=== PATIENT | female | born 1930 | race Caucasian/White ===

== ENCOUNTER 2016-06-19 16:20 | Emergency (ER) | payer MEDICARE ==
[~2016-06-19] VITALS: Ht 161.3 cm; Wt 81.8 kg
[~2016-06-19 16:20] MED LIST: ASPI-628 PO; ESCI5SOL PO; ESOM40CA41 PO; LISI-571 PO; ROSU40TA PO; VERA240C PO
[2016-06-19 16:30] VITALS: BP 125/43; PULSE 68; RESP 17; O2SAT 98
--- NOTE | 2016-06-19 16:51 | ED.REPORT ---
HPI-General Illness Date of Service Jun 19, 2016 ED Provider: Ryan Garcia MD This is an 86 year old female with a history of HTN sent to the ED from urgent care via ambulance complaining of SOB that began 2 weeks ago. Increased dyspnea with exertion which is resolved with rest. Also reports left sided headache that began 2 weeks ago. Denies cough, rhinorrhea, abdominal pain, nausea, vomiting, weakness, numbness, speech changes, or vision changes. Nursing Notes Stated Complaint: SOB Chief Complaint: Chest Pain Nursing Notes Reviewed: Yes Allergies: Coded Allergies: tramadol HCl (Verified Allergy, Unknown, 11/06/13) Scheduled Aspirin (Aspir 81) 81 Mg Tablet.dr 81 MG PO DAILY Escitalopram Oxalate (Lexapro) 5 Mg/5 Ml Solution 10 MG PO DAILY Esomeprazole Magnesium (Nexium) 40 Mg Capsule.dr 40 MG PO DAILY Lisinopril (Lisinopril) 5 Mg Tablet 5 MG PO DAILY Rosuvastatin Calcium (Crestor) 40 Mg Tablet 40 MG PO DAILY Verapamil ER (Verapamil ER) 240 Mg Cap24h.pel 240 MG PO DAILY General Time Seen by MD: 16:39 Chief Complaint Other Hx Obtained From: Patient Arrived By: Walk-in Sudden in Onset?: Yes Onset Occurred: More than a week ago... (2 weeks) Symptom Duration: Since onset Severity: Current: Mild Pertinent Negative: Pt denies other symptoms Recent Healthcare: No recent doctor visit, No recent hospitalization Similar Sx Previous: No Past Medical History Past Medical History Reports: Hypertension, Denies: COPD, Cancer, Diabetes mellitus Smoking History Former Smoker Ambulatory Status Independent NIH Stroke Scale Level of Consciousness: Alert and responsive (0) Ask Month & Age: Both questions right (0) Open/Close Eyes/Hand Commodities Manager: Performs both tasks (0) Horizontal EO Movements: None (0) Visual Overton: No visual loss (0) Facial Palsy: Normal symmetry (0) Right Arm Motor Drift (10s): No drift 10 sec (0) Left Arm Motor Drift (10s): No drift 10 sec (0) Right Leg Motor Drift (5s): No drift 5 sec (0) Left Leg Motor Drift (5s): No drift 5 sec (0) NIHSS Score: 0 Time NIHSS Performed: 17:11 Date NIHSS Performed: Jun 19, 2016 Review of Systems Full Review of Systems Constitutional: Denies: Chills, Fever Respiratory: Reports: Shortness of breath, Denies: Non-productive cough Cardiovascular: Denies: Chest pain GI: Denies: Abdominal pain, Nausea, Vomiting Neurologic: Reports: Headache, Denies: Change LOC, Dizziness, Lightheaded, Numbness Complete sys rev & neg: except as marked. Physical Exam Vital Signs Vital Signs Date Time Temp Pulse Resp B/P Pulse Ox O2 Delivery O2 Flow Rate FiO2 06/19/16 17:55 67 18 141/52 98 Room Air 06/19/16 16:30 37. 68 17 125/43 98 Room Air Initial VS: Reviewed General/Constitutional: Well-developed, Well-nourished Head / Eyes: Atraumatic, Normocephalic, PERRL ENT: Mucous membranes moist, Conjunctiva normal, No scleral icterus Neck: Supple, Non-tender, Full range of motion Respiratory: Breath sounds normal, Clear to auscultation, No respiratory distress Extremities: Vascular intact, Neuro intact, No swelling, No tenderness Skin: Warm, Dry, No cyanosis Neurologic: Alert, Oriented, Nonfocal Psychiatric: Mood/affect normal, Behavior normal, Normal thought content Cardiovascular: Heart rate NL Heart Sounds / Murmur: Positive: Systolic murmur present.. (II/) Interpretation & Diagnostics Lab Results Interpretation Result Diagram: 06/19/16 1635 06/19/16 1635 Test 06/19/16 16:35 White Blood Count 4.8th/mm3 (3.8-10.1) Red Blood Count 3.71mil/mm3 (3.90-5.20) Hemoglobin 12.7g/dL (12.0-15.6) Hematocrit 37.5% (35.0-46.0) Mean Corpuscular Volume 101.1fL (81-100) Mean Corpuscular Hemoglobin 34.2pg (27.0-35.0) Mean Corpuscular Hemoglobin Concent 33.9% (32.0-37.0) Red Cell Distribution Width 13.4% (12.3-15.4) Platelet Count 170bil/L (150-400) Neutrophils (%) (Auto) 47.6% (40-74) Lymphocytes (%) (Auto) 38.6% (14-46) Monocytes (%) (Auto) 11.1% (4-12) Eosinophils (%) (Auto) 2.1% (0-5) Basophils (%) (Auto) 0.4% (0-3) Sodium Level 139mEq/L (134-144) Potassium Level 4.1mEq/L (3.5-5.2) Chloride Level 102mEq/L (97-108) Carbon Dioxide Level 25mmol/L (18-29) Blood Urea Nitrogen 18mg/dL (8-27) Creatinine 0.69mg/dL (0.57-1.00) Estimat Glomerular Filtration Rate 116mL/min (>59) Glucose Level 86mg/dL (60-99) Calcium Level 9.4mg/dL (8.5-10.1) Magnesium Level 2.0mg/dL (1.6-2.6) Total Bilirubin 0.3mg/dL (0.0-1.2) Aspartate Amino Transf (AST/SGOT) 25U/L (0-50) Alanine Aminotransferase (ALT/SGPT) 20U/L (0-32) Alkaline Phosphatase 82U/L (25-165) Troponin T < 0.010ug/L (0.0-0.011) Total Protein 6.8g/dL (6.4-8.4) Albumin 3.8g/dL (3.4-5.0) ECG Interpretation ECG Interpretation: NSR at a rate of 65 RBBB, new since 01/2013 LAFB Time: 16:52 Interpreted by: ED physician X-Ray Chest Interpretation Chest Xray Interpretation: IMPRESSION: No acute process. Dictated by: Vicki Dick M.D. on 06/19/2016 at 16:53 Approved by: Vicki Dick M.D. on 06/19/2016 at 16:53 Re-Eval/Medical Decision Time of Eval: 17:20 Re-Evaluation/Progress Note: Discussed lab results and plan for d/c, pt understands and agrees with plan, all questions addressed Counseled Regarding: Diagnosis, Lab results, Need for follow-up, When/why to return to ED Discharge & Departure Primary Impression: Dyspnea Additional Impression: Right bundle branch block Disposition: Home Discharge Condition All VS Reviewed: Yes Condition: Stable Additional Instructions: Your chest x-ray, ECG, and labs did not indicate a dangerous cause for your symptoms today. Your EKG reveals a right bundle branch block which may or may not be of any significance. This will require further evaluation. Call the doctor listed below for appointment in the next couple of weeks. Make sure that you tell them that this is an ER follow-up visit for an abnormal EKG. Return to the emergency department for any new or worsening symptoms. Referrals: Hadley Hernandez DO 1 Week Scribe Attestation Portions of this note were transcribed by Ebony Martinez. I, Dr. Garcia personally performed the history, physical exam and medical decision-making; I reviewed and confirmed the accuracy of the information in the transcribed note. Signed by: lemuel rFank. 06/19/2016, 18:00. copies to: Hadley Hernandez Kirk H MD Jun 19, 2016 16:51 EOBNY MARTINEZ Jun 19, 2016 16:52
[2016-06-19 16:55] LABS: BASOPHILS % (AUTO) 0.4 % (0-3); EOSINOPHILS % (AUTO) 2.1 % (0-5); MONOCYTES % (AUTO) 11.1 % (4-12); Mean Corpuscular Hemoglobin 34.2 pg (27.0-35.0); Mean Corpuscular Volume 101.1 fL (81-100); NEUTROPHILS % (AUTO) 47.6 % (40-74); Platelet Count 170 bil/L (150-400)
--- NOTE | 2016-06-19 16:55 | DRSVH ---
PROCEDURE: X-RAY CHEST ONE VIEW, PORTABLE ([id number]) INDICATIONS: sob TECHNIQUE: One view of the chest was acquired. COMPARISON: [facility], , CHEST 1VW (PORTABLE), 01/21/2013, 20:22. FINDINGS: Surgical changes and devices: None. Lungs and pleura: No pleural effusions or pneumothorax. Lungs are clear. Mediastinum: Mediastinal contours appear normal. Heart size is normal. Bones and chest wall: No suspicious bony lesions. Overlying soft tissues appear unremarkable. IMPRESSION: No acute process. Dictated by: Vicki Dick M.D. on 06/19/2016 at 16:53 Approved by: Vicki Dick M.D. on 06/19/2016 at 16:53
[2016-06-19 17:31] LABS: TROPONIN T < 0.010 ug/L (0.0-0.011)
[2016-06-19 17:55] VITALS: BP 141/52; PULSE 67; RESP 18; O2SAT 98
[2016-06-19 18:21] VITALS: BP 141/52; PULSE 67; RESP 18; O2SAT 98
[2016-06-20 05:09] LABS: Free Thyroxine Index 1.6 (1.2-4.9); Thyroxine (T4) 7.7 ug/dL (4.5-12.0)
== END 2016-06-19 18:21 | disposition home or self-care (01) ==
LOC: SED 16:20
DX: R06.00 Dyspnea, unspecified (principal); I45.10 Unspecified right bundle-branch block; I10 Essential (primary) hypertension; Z87.891 Personal history of nicotine dependence; Z79.82 Long term (current) use of aspirin; Z88.5 Allergy status to narcotic agent

== ENCOUNTER 2017-01-21 16:01 | Observation (INO) | payer MEDICARE ==
[2017-01-21] VITALS (8 sets, daily range): BP systolic 136–170; BP diastolic 59–86; PULSE 70–104; RESP 12–21; O2SAT 95–99
[~2017-01-21] VITALS: Ht 162.6 cm; Wt 80.4 kg
--- NOTE | 2017-01-21 16:26 | ED.REPORT ---
HPI-Neurologic Deficit Date of Service Jan 21, 2017 ED Provider: Jd Banda DO The pt is an 86 y/o female with a hx of HTN who presents to the ED complaining of lightheadedness for the last two days. She states she is being more cautious with her head movements as she easily gets lightheaded. She also reports forgetfulness. The pt has itchy and erythematous bug bites on her right forearm and on her right calf. She denies chest pain, shortness of breath, palpitations , numbness and weakness in extremities, ulcers inside the mouth, vomiting, constipation, and dysuria. Nursing Notes Stated Complaint: DIZZY,RT LEG RASH,SENT BY URGENT CARE Chief Complaint: Neuro Symptoms/ Deficits Nursing Notes Reviewed: Yes Allergies: Coded Allergies: tramadol HCl (Verified Allergy, Unknown, 01/21/17) Scheduled Aspirin (Aspir 81) 81 Mg Tablet.dr 81 MG PO DAILY Escitalopram Oxalate (Lexapro) 5 Mg/5 Ml Solution 10 MG PO DAILY Esomeprazole Magnesium (Nexium) 40 Mg Capsule.dr 40 MG PO DAILY Lisinopril (Lisinopril) 5 Mg Tablet 5 MG PO DAILY Rosuvastatin Calcium (Crestor) 40 Mg Tablet 40 MG PO DAILY Verapamil ER (Verapamil ER) 240 Mg Cap24h.pel 240 MG PO DAILY General Time Seen by Provider: 16:27 Chief Complaint Other (dizziness) Hx Obtained From: Patient Arrived By: Walk-in Sudden in Onset?: Yes Onset Occurred: 2 days ago Symptom Duration: Since onset Severity: Current: No pain currently Severity: Maximum: No pain Recent Healthcare: No recent doctor visit Risk Factors NIH Stroke Scale Level of Consciousness: Alert and responsive (0) Ask Month & Age: Both questions right (0) Open/Close Eyes/Hand Gaming Director: Performs both tasks (0) Horizontal EO Movements: None (0) Visual Overton: No visual loss (0) Facial Palsy: Normal symmetry (0) Right Arm Motor Drift (10s): No drift 10 sec (0) Left Arm Motor Drift (10s): No drift 10 sec (0) Right Leg Motor Drift (5s): No drift 5 sec (0) Left Leg Motor Drift (5s): No drift 5 sec (0) Limb Ataxia FNF/Heel-Diaz: No ataxia (0) Sensation (Arms/Legs/Face): No sensory loss (0) Language Aphasia: No aphasia, normal (0) Dysarthria: No dysarthria, normal (0) Extinction/Inattention: No exctinct/inattent (0) NIHSS Score: 0 Time NIHSS Performed: 16:35 Date NIHSS Performed: Jan 21, 2017 Past Medical History Past Medical History Reports: GERD, Hypertension Past Surgical History Torn rotator cuff Smoking History Former Smoker Ambulatory Status Independent Review of Systems Reports: forgetfulness Denies: ulcers inside the mouth Respiratory: Denies: Shortness of breath Cardiovascular: Denies: Chest pain, Palpitations GI: Denies: Constipation, Vomiting Skin: Reports Itching (on the bug bite on right forearm and right calf) Neurologic: Reports: Dizziness, Denies: Numbness, Weakness Complete sys rev & neg: except as marked. Female: Denies: Dysuria Physical Exam Initial Vital Signs Vital Signs (First) Date Time Temp Pulse Resp B/P Pulse Ox O2 Delivery O2 Flow Rate FiO2 01/21/17 16:09 36.4 104 16 139/82 96 01/21/17 17:14 Room Air Initial VS: Reviewed Neck: Supple, Non-tender, Full range of motion Abdomen / GI: Soft, Non-tender, No guarding, No rebound, No distention Extremities: Vascular intact, Neuro intact, No swelling, No tenderness Skin: Warm, Dry, No cyanosis General/Constitutional: Awake, Alert, Well appearing, Cooperative Head / Eyes: Atraumatic, Normocephalic, PERRL Respiratory / Chest: Atraumatic, Breath sounds NL, Breath sounds = bilat, No respiratory distress, No rales, No rhonchi, No wheezing Cardiovascular: Heart rate NL, Regular rhythm, Heart sounds NL, No gallop, No murmurs, No rubs No edema Neurologic: Oriented X3, Speech NL, No motor deficits, No sensory deficits Skin: Atraumatic, Warm, Dry Urticarial lesion to the right distal forearm and right posterior calf with a scab in the center, consistent with a bug bite. Interpretation & Diagnostics Lab Results Interpretation Result Diagram: 01/21/17 1705 01/21/17 1705 Test 01/21/17 17:05 01/21/17 18:35 White Blood Count 4.7th/mm3 (3.8-10.1) Red Blood Count 3.98mil/mm3 (3.90-5.20) Hemoglobin 13.6g/dL (12.0-15.6) Hematocrit 39.9% (35.0-46.0) Mean Corpuscular Volume 100.3fL (81-100) Mean Corpuscular Hemoglobin 34.2pg (27.0-35.0) Mean Corpuscular Hemoglobin Concent 34.1% (32.0-37.0) Red Cell Distribution Width 13.2% (12.3-15.4) Platelet Count 192bil/L (150-400) Neutrophils (%) (Auto) 53.1% (40-74) Lymphocytes (%) (Auto) 33.3% (14-46) Monocytes (%) (Auto) 10.7% (4-12) Eosinophils (%) (Auto) 2.3% (0-5) Basophils (%) (Auto) 0.4% (0-3) Prothrombin Time 9.8sec (8.1-12.5) Prothromb Time International Ratio 0.92ratio Activated Partial Thromboplast Time 24.0sec (22.8-33.0) Sodium Level 142mEq/L (134-144) Potassium Level 3.9mEq/L (3.5-5.2) Chloride Level 105mEq/L (97-108) Carbon Dioxide Level 22mmol/L (18-29) Blood Urea Nitrogen 18mg/dL (8-27) Creatinine 0.75mg/dL (0.57-1.00) Estimat Glomerular Filtration Rate 105mL/min (>59) Glucose Level 109mg/dL (60-99) Calcium Level 9.7mg/dL (8.5-10.1) Total Bilirubin 0.3mg/dL (0.0-1.2) Aspartate Amino Transf (AST/SGOT) 25U/L (0-50) Alanine Aminotransferase (ALT/SGPT) 18U/L (0-32) Alkaline Phosphatase 87U/L (25-165) Troponin T < 0.010ug/L (0.0-0.011) Total Protein 6.9g/dL (6.4-8.4) Albumin 4.1g/dL (3.4-5.0) Hold Asher Top Tube Received (Received) Urine Color Yellow (YELLOW) Urine Appearance Hazy (CLEAR,HAZY) Urine pH 6.0 (5.0-8.0) Urine Specific [place] 1.020 (1.003-1.035) Urine Protein Negativemg/dL (NEG,TRACE) Urine Glucose (UA) Negativemg/dL (NEGATIVE) Urine Ketones Negativemg/dL (NEGATIVE) Urine Occult Blood Negative (NEGATIVE) Urine Nitrite Negative (NEGATIVE) Urine Bilirubin Negative (NEGATIVE) Urine Urobilinogen 1.0mg/dL (NORMAL) Urine Leukocyte Esterase Moderate (NEGATIVE) Urine RBC 0-2/hpf (0-2) Urine WBC 6-10/hpf (0-5) Urine Epithelial Cells Few/hpf (NONE-MOD) Urine Crystals None seen (NONE SEEN) Urine Bacteria Few/hpf (NONE-FEW) Urine Hyaline Casts None/lpf (NONE) Urine Granular Casts None seen (NONE SEEN) Urine Waxy Casts None seen (NONE SEEN) Urine Red Blood Cell Casts None seen (NONE SEEN) Urine White Blood Cell Casts None seen (NONE SEEN) Urine Mucus None seen (None Seen) Urine Trichomonas None seen (NONE SEEN) Urine Yeast None (NONE SEEN) Urinalysis Comment None Urine Culture Reflexed Indicated ECG Interpretation ECG Interpretation: Normal sinus rhythm. Rate 77. RBBB and LAFB Time: 17:26 Interpreted by: ED physician CT Head Interpretation IMPRESSION: Source of current symptoms is not seen, and the study appears normal for age. Dictated by: Esteban Jo M.D. on 01/21/2017 at 17:17 Approved by: Esteban Jo M.D. on 01/21/2017 at 17:19 Study: Head CT no contrast Interpretation / Wet Read by: Interpret - Radiologist Re-Eval/Medical Decision Med Decision/Clinical Course Patient presents with a vague sense of lightheadedness and reported difficulty with walking. Her NIH stroke scale is 0, she is able to ambulate well in the ER. Patient's symptoms are concerning for CVA or TIA or other cause for dizziness. Head CT was initially unremarkable, she was treated with meclizine and IV fluids and continues to feel dizzy despite these interventions. We will plan to admit her, observe her for any worsening symptoms and pursue further imaging for possible stroke. Source of Hx: Old records Re-Evaluation/Progress #1: Time of Eval: 18:02 Re-Evaluation/Progress Note: Rechecked pt. Discussed imaging results and plan to do a road test. She understands and agrees with the plan. All questions answered. Re-Evaluation/Progress #2: Time of Eval: 18:28 Re-Evaluation/Progress Note: Rechecked pt. Discussed lab results, imaging results,diagnosis and plan to admit. Pt understands and agrees with the plan for admission. All questions addressed. Re-Evaluation/Progress #3: Time of Eval: 18:36 Re-Evaluation/Progress Note: Rechecked pt. She still feels dizzy. Consultation : Referral / Consult Name: Bruna Mayen DO Consulted With: Hospitalist Call Returned at: 19:24 Wheel Press Operator: Accepts admit Counseled Regarding: Diagnosis, Lab results, Need for admission Discharge & Departure Impression: Primary Impression: Dizziness Disposition: ADMITTED TO HOSPITAL Discharge Condition All VS Reviewed: Yes Referrals: [facility] Scribe Attestation Portions of this note were transcribed by Vanita Torres. I,, personally performed the history,physical exam and medical decision-making;I reviewed and confirmed the accuracy of the information in the transcribed note. Signed by Guillermo Pitts. 01/21/17 Jd Banda DO Jan 21, 2017 16:26 Vanita Torres Jan 21, 2017 16:34
[2017-01-21] MEDS ORDERED: 0.9% Sodium Chloride 1,000 ML IV ONE (16:49)
--- NOTE | 2017-01-21 17:21 | DRSVH ---
PROCEDURE: CT BRAIN WITHOUT CONTRAST ([id number]) INDICATIONS: dizziness TECHNIQUE: Noncontrast 4.5 mm thick angled axial sections acquired from the foramen magnum to the vertex, with c oronal reformats. COMPARISON: None. FINDINGS: Image quality: Excellent. CSF spaces: Basal cisterns are patent. No extra-axial fluid collections. The ventricles are symmet jodi in size and shape. Brain: No intracranial bleeds or masses. There is cerebral volume loss for age, with resultant vent ricular and sulcal prominence. There are periventricular and deep white matter chronic small vessel ischemic changes. There is intracranial internal carotid artery atherosclerosis. Skull and face: Calvarium and visualized facial bones appear intact, without suspicious lesions. Sinuses: Visualized sinuses and mastoids are clear. IMPRESSION: Source of current symptoms is not seen, and the study appears normal for age. Dictated by: Esteban Jo M.D. on 01/21/2017 at 17:17 Approved by: Esteban Jo M.D. on 01/21/2017 at 17:19
[2017-01-21 17:22] LABS: BASOPHILS % (AUTO) 0.4 % (0-3); EOSINOPHILS % (AUTO) 2.3 % (0-5); MONOCYTES % (AUTO) 10.7 % (4-12); Mean Corpuscular Hemoglobin 34.2 pg (27.0-35.0); Mean Corpuscular Volume 100.3 fL (81-100); NEUTROPHILS % (AUTO) 53.1 % (40-74); Platelet Count 192 bil/L (150-400)
[2017-01-21 17:36] LABS: INR 0.92 ratio
[2017-01-21 17:53] LABS: TROPONIN T < 0.010 ug/L (0.0-0.011)
[2017-01-21 19:00] LABS: APPEARANCE,URINE HAZY (CLEAR,HAZY); COLOR,URINE YELLOW (YELLOW); OCCULT BLOOD,URINE NEGATIVE (NEGATIVE)
[2017-01-21] MEDS ORDERED: ASPI-973 PO (19:34)
[2017-01-21] MEDS ORDERED: Polyethylene Glycol (PEG) 17 Gm Powder PO PRN (19:35)
[2017-01-21] MEDS ORDERED: Alum-Mag Hydrox-Simeth 30 mL Suspension PO PRN (19:35)
[2017-01-21] MEDS ORDERED: Ondansetron 2 mg/mL 2 mL Inj IVPUSH PRN (19:35)
--- NOTE | 2017-01-21 20:28 | NUR ---
Case Management: I was called to the ED to speak with patient regarding Observation Status, when I arrived into the room her left immediately left. I did offer the patient a Medicare Part A/ Part B Covered Services information sheet which the patient refused to take. I did explain the [place] at 1953, all questions answered. Signed original placed in chart, copy given to patient. I offered Medicare Part D Drug info (pt denied having Part D and refused the information). Ericka Diaz, RN
--- NOTE | 2017-01-21 21:34 | PCM.HPMED ---
Subjective Date of Service Jan 21, 2017 Primary Provider: Admitting Physician: Bruna Mayen DO Primary Care Physician: Nopcp Attending Physician: Bruna Mayen DO Chief Complaint: dizziness History of Present Illness: Patient is an 86-year-old female with a medical history significant for hypertension, dyslipidemia, and depression presents with 2 days of dizziness and right forearm/right lower leg itching. Patient reported "head strange", lightheadedness, dizziness. Though, patient denies any unilateral extremity weakness, slurred speech, heart palpitation, chest pain, or syncopal episode. On clarification, patient denies any lightheadedness, rather she felt room spinning whenever her head moves. Episode lasts less than a minute. Patient does state mild frontal headache, bilateral. This is worse in the morning when she wakes up. Patient denies any recent cold-like symptoms, no nausea, vomiting, no recent EtOH use. Unrelated, patient reported skin rash for the past 1.5 weeks of the right hand, migrating to right forearm and right posterior lower leg. Patient has been scratching until skin tear formation. Patient denies any recent yard work, insect bite. Denies any joint pains. Patient denies any environmental or contact allergy. Patient initially evaluated by urgent care for dizziness and recommended the patient be evaluated in the ED. CT of the head unremarkable. Orthostatic negative. Patient was however refractory to meclizine, thus admitted for observation of a possible TIA/CVA. Review of Systems: A comprehensive review of systems was conducted with the patient and found to be negative except as above in the History of Present Illness. Allergies Coded Allergies: tramadol HCl (Verified Allergy, Unknown, 01/21/17) Home Medications Verapamil ER 240 mg daily Nexium 40 mg daily Lisinopril 5 mg daily Crestor 40 mg daily Aspirin 81 mg daily PMH Hypertension Dyslipidemia GERD Depression Osteoarthritis Osteoporosis GERD Right bundle branch block Left anterior fascicular block Surgical History Rotator cuff surgery Family History Father with a history of OK disease Mother with brain aneurysm Social History Hx Alcohol Use: Yes Hx Substance Use: No Hx Tobacco Use: No (smoked in college only) Smoking Status: Former Smoker Exam Vital Signs Vital Sign - Last Date Time Temp Pulse Resp B/P Pulse Ox O2 Delivery O2 Flow Rate FiO2 01/21/17 21:10 36.0 74 20 170/81 95 Room Air Exam General: No acute distress, appropriately interactive HEENT: Normocephalic, atraumatic. PERRLA, EOMI, Anicteric sclerae, moist conjunctivae. No maxillary or frontal sinus tenderness, bilateral decrease hearing chronic Neck: No JVD, No bruits. No lymphadenopathy or thyromegaly. Cardiovascular: Regular rate and rhythm with 3+ systolic murmurs, no rubs, or gallops appreciated Pulmonary: b/l air sound with no crackles, wheezes, or rhonchi. no use of accessory muscles. Abdomen: +Bowel sound, Soft, nontender, nondistended. Extremities: No clubbing or cyanosis, no lymphedema, no b/l lower leg edema Skin: Normal temperature, turgor, and texture; no rash. No visualized skin ulcer. Neurological: CN II-VII grossly intact, moving equally on all 4 extremities, finger to nose test negative, no nystagmus Psychiatric: Normal mood and affect. AOx3 Lab and Diagnostics Result Diagram: 01/21/17170401/21/171704 Assessment & Plan Pt is an 86-year-old female with a medical history of hypertension, dyslipidemia , and depression presented with acute dizziness, admitted for stroke rule. Acute dizziness, present on admission, active -Likely vestibular disorder, benign paroxysmal positional vertigo, possible vestibular neuritis -Concern for TIA/CVA. ABCD scores for, there is a 4.1 risk for stroke -CT head negative. Pending MR stroke protocol -Start meclizine 25 mg TID PRN, consider steroids should MRI negative continued dizziness Urticaria -Unknown exact cause -Vistaril 25 mg q8h prn Pyuria -UA shows 6-10 WBC -No signs or symptoms of UTI however, WBC negative -Monitor Chronic medical condition Essential hypertension -Continue lisinopril 5 mg daily and verapamil 240 mg daily Dyslipidemia -Continue home lovastatin 40 mg daily GERD -Protonix CODE STATUS: Full code DVT prophylaxis: Heparin subcutaneous Resuscitation Status: CPR: Attempt Resuscitation Attending Statement The patient was seen and examined together with house staff on 01/21/2017 and I agree with the history, exam and plan as outlined in the note above. Juan Meraz DO Jan 21, 2017 21:34 Bruna Mayen DO Jan 22, 2017 05:09
[2017-01-21] MEDS: hydrOXYzine Pamoate 25 mg Capsule PO PRN (22:51)
[2017-01-21] MEDS: Verapamil SR 240 mg ER12 Tablet PO SCH (23:05)
[2017-01-22] VITALS (10 sets, daily range): BP systolic 124–138; BP diastolic 67–97; PULSE 65–87; RESP 18–20; O2SAT 91–99
--- NOTE | 2017-01-22 02:56 | NUR ---
Admit Pt [place] [facility] [place] from the [place] at 2009. Pt A/Ox4 and able to walk to bed with SBA. Pt reporting some dizziness while walking but it does go away after a few seconds. Pt denies pain. Orthostats done and negative. Pt taken down to MRI and the night radiologist called with results which were negative. Pt reporting itchiness to right arm and top of right calf, redness and swelling present. Pt thinks this is a mosquito bite, hydrocortisone cream applied and Vistaril given as well. Pt was given scheduled Verapamil and BP has come down to 125/67. Pt NICHOLSON equally bilaterally with equal strength. Pt is now on heart healthy diet and tolerated lean cuisine for late dinner. Pt was oriented to room and call light and has been using call light appropriately. Addendum: 01/22/17 at 0652 by CARLIN PASCUAL RN Meclizine given this morning, pt reporting dizziness that comes and goes. Neuro intact.
[2017-01-22] MEDS: Pantoprazole 40 mg ER24 Tablet PO SCH (05:44)
[2017-01-22] MEDS: Verapamil SR 240 mg ER12 Tablet PO SCH (08:30)
[2017-01-22] MEDS: cefTRIAXone Inj 2,000 MG in Dextrose 5% Minibag Plus 50 ML IV SCH (09:09)
[2017-01-22] MEDS: Heparin 5,000 Unit/mL Inj SUBQ SCH ×2 (09:12→22:08)
[2017-01-22] MEDS: hydrOXYzine Pamoate 25 mg Capsule PO PRN (10:28)
--- NOTE | 2017-01-22 10:44 | DRSVH ---
PROCEDURE: MRI STROKE PROTOCOL ([id number]) Pre- and post-contrast brain MRI, non-contrast brain MR angiogram, pre- and postcontrast neck MR fady ogram INDICATIONS: dizziness TECHNIQUE: Brain: Noncontrast axial T1 spin echo, axial T2 fast spin echo, sagittal and axial FLAIR, coronal T2 fast spin echo, axial gradient echo, axial diffusion and ADC through the brain. After the administr ation of contrast, axial 3D VIBE of the cranial vasculature and brain. Brain MRA: Non-contrast 3-D time of flight MR angiogram, with multiple lzhndsw-zijillwsd-inwlzaawmr (MIP) reformats performed. Neck MRA: Axial and sagittal TruFISP through the neck. Coronal dynamic MR angiogram during administ ration of contrast in the arterial and venous phases, with 3-dimenstional xkygfss-lubejbkgm-pdeuvzjkm n (MIP) reformats constructed from subtraction images. COMPARISON: [facility], CT, CT BRAIN WO CON, 01/21/2017, 17:03. FINDINGS: Image quality: Excellent. BRAIN: CSF spaces: Ventricles are normal in size and shape. Basal cisterns are patent. No extra-axial flu id collections. Brain: No intracranial bleeds or mass effects. Gonzalez-white matter interface is normal. Diffusion we ighted images show no acute ischemic insults. A few, scattered, punctate foci of increased T2 signal noted in the paraventricular and subcortical white matter tracts. Brainstem appears normal. Normal i ntravascular flow voids are present. No abnormal intracranial enhancement. Skull and face: Calvarial marrow signal is normal. Orbits appear normal. Sinuses: Sinuses and mastoids are clear. BRAIN MR ANGIOGRAM: Anterior circulation: Intracranial internal carotid arteries are normal in size and enhancement. Th e flow within the paired anterior cerebral arteries is normal. 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 The flow within the middle cerebral arteries is normal and sy mmetric. The anterior communicating artery is seen. No stenoses, occlusions, or aneurysms. Posterior circulation: The visualized portions of the vertebral arteries demonstrate normal caliber, and join to form a normal appearing basilar artery. The flow within the posterior cerebral arteries is normal and symmetric. The right posterior cerebral artery has a origin which is a congenita l anatomic variant. No stenoses, occlusions, or aneurysms. NECK MR ANGIOGRAM: Carotids: Great vessels demonstrate a conventional anatomy as they arise from the aortic arch. The origins of the common carotid arteries appear patent. The calibers and courses of both common caroti d arteries are normal. Atherosclerotic irregularity noted in the origin of the right internal carotid artery which causes less than 50% stenosis of the vessel. Atherosclerotic regularity causes high gra de stenosis of the origin of the right external carotid artery. Left internal carotid artery is fully patent. Posterior circulation: The origins of the vertebral arteries appear patent. More superior portions of both vertebral arteries demonstrate normal course and caliber, and join to form a normal appearing basilar artery. Miscellaneous: Subclavian arteries appear patent. Pre-contrast images through the neck show no soft tissue abnormalities. IMPRESSION: BRAIN MRI: 1. No acute intracranial disease process. 2. No areas of acute or chronic infarction. 3. Mild, diffuse volume loss. 4. Mild periventricular and subcortical white matter chronic microvascular ischemic changes. BRAIN MR ANGIOGRAM: Negative examination. NECK MR ANGIOGRAM: 1. Less than 50% stenosis of the origin of the right internal carotid artery. 2. Left internal carotid artery is fully patent. 3. Vertebral arteries are fully patent. The estimate of stenosis included in the report of the imaging study was calculated using the NASCET method Dictated by: Laney Hoyos MD, PhD on 01/22/2017 at 10:30 Approved by: Laney Hoyos MD, PhD on 01/22/2017 at 10:42
--- NOTE | 2017-01-22 11:34 | NUR ---
Evaluation completed. Please go to "Notes" then click on "Assessments and Notes" (bottom left corner of screen). Then select appropriate discipline tab on top of screen.
--- NOTE | 2017-01-22 13:08 | NUR ---
Social Work-initial assessment/ readiness for discharge/ multidisciplinary rounds: Data:See initial assessment. Pt is a 86 y/o female who was admitted on 01/21/17 for dizziness per H&P. Pt's insurance is [employer] and [employer] and PCP Dr. Levy DO. EMR reviewed. Pt's readmission score is 3-high risk. SW met with pt at bedside, SW role explained. Pt is alert and oriented x3. Pt resides at home with her son Brandie in a single level home where she remains independent with ADLs. Pt drives and does not use any DME. Pt has no HH or SNF history. Pt has no halfway care insurance or VA benefits. SW discussed DPOA/ advanced directive, pt confirms this has been completed. Pt discussed in morning rounds, no concerns noted from MD puff iron operator regarding pt's capacity for self care. PT saw pt and cleared pt for home no needs. SW provided pt with discharge planning checklist and encouraged pt to call with any questions,phone number provided on white board in room. Pt states her family will provide transport home. No anticipated discharge needs. SW will continue to follow if needs arise. Assessment:pt who is independent at baseline. Plan:Pt to discharge home when medically stable via POV. No anticipated discharge needs. SW will continue to follow if needs arise. FELICIA Frank Addendum: 01/22/17 at 1313 by CHERYL SUMMERS SS Amended: Links added.
--- NOTE | 2017-01-22 13:53 | NUR ---
Discussed case with RN. Pt has been eating and drinking a general diet without difficulty or concern. FLOAT NURSE will s/o. Please reorder with new or worsening condition.
--- NOTE | 2017-01-22 14:04 | NUR ---
Case Management: Jansen and Medicare Part D pamphlet delivered and explained. Signed original placed in chart. Copy left at bedside. Kadi Gibbs RN
--- NOTE | 2017-01-22 14:10 | NUR ---
Itching / Headache Patient C/O moderate headache (5/10) upon waking this morning. Thinks it may be from sleeping in different position. Refuses pain medication, but ORR does resolve to tolerable 4/10 within several hours. Patient reports significant itching on right medial forearm and right medial and popliteal area of right lower leg. PRN hydrocortisone provides slight relief. PO hydroxyzine makes itch tolerable. Skin in both areas is intact, pink to light red in color with no breakdown, maceration or breaks noted. Patient thinks it may be "bites or stings" but cannot remember exposure to insects, etc. Patient calm, appropriate and cooperative with care, though slightly anxious at times (through observations and self reported feelings). Bed low and locked, call light in reach, care and frequent rounding ongoing.
--- NOTE | 2017-01-22 17:41 | PCM.PNMED ---
Subjective Date of Service Jan 22, 2017 Subjective Patient was seen and examined at bedside today. Patient denies any chest pain, shortness of breath, nausea, vomiting, diarrhea. The patient does complain of dizziness which seems to be positionally related. The patient states that she only has the dizziness when moving her neck especially if she does a quick motion. Overnight events: None Exam Vital Signs Vital Sign - Last Date Time Temp Pulse Resp B/P Pulse Ox O2 Delivery O2 Flow Rate FiO2 01/22/17 13:05 36.5 71 18 138/78 92 Room Air Intake and Output 01/21/17 01/21/17 01/22/17 Cumulative From/Thru 15:00 23:00 07:00 01/21/17 16:09 - 01/22/17 06:24 Intake Total 150 ml 150 ml Output Total 1100 ml 1100 ml Balance -950 ml -950 ml Intake Oral 150 ml 150 ml Output Urine Total 1100 ml 1100 ml Exam Physical Exam: GEN: Patient was awake, alert, responding appropriately to questions HEENT: Pupils equal round and reactive to light, extraocular eye muscles intact , Neck soft supple, trachea midline, nomocephalic/atraumatic CV: +S1/S2, regular rate and rhythm, no murmurs auscultated Respiratory: CTAB, no wheezes, rales, rhonchi GI: +bowel sounds x4, soft, compressible, nontender to palpation EXT: no clubbing, cyanosis, edema Neuro: Cranial nerves II-XII grossly intact Psych: mood and affect were appropriate IVs and Medications Medications Reviewed: Medications were reviewed in detail Lab and Diagnostics Result Diagram: 01/21/17 1705 01/21/17 170 X-Rays, CTs and MRIs IMPRESSION: BRAIN MRI: 1. No acute intracranial disease process. 2. No areas of acute or chronic infarction. 3. Mild, diffuse volume loss. 4. Mild periventricular and subcortical white matter chronic microvascular ischemic changes. BRAIN MR ANGIOGRAM: Negative examination. NECK MR ANGIOGRAM: 1. Less than 50% stenosis of the origin of the right internal carotid artery. 2. Left internal carotid artery is fully patent. 3. Vertebral arteries are fully patent. The estimate of stenosis included in the report of the imaging study was calculated using the NASCET method Dictated by: Laney Hoyos MD, PhD on 01/22/2017 at 10:30 Approved by: Laney Hoyos MD, PhD on 01/22/2017 at 10:42 Assessment & Plan Pt is an 86-year-old female with a medical history of hypertension, dyslipidemia , and depression presented with acute dizziness, admitted for stroke rule. Acute dizziness, present on admission, active -Likely vestibular disorder, benign paroxysmal positional vertigo, possible vestibular neuritis -Concern for TIA/CVA. ABCD scores for, there is a 4.1 risk for stroke -CT head negative. - MRI negative -Continue meclizine 25 mg TID PRN, -Physical therapy consulted for vestibular evaluation and treatment -OMT -May consider steroids if dizziness is continued Urticaria versus scabies, present on admission, active -Unknown exact cause -Vistaril 25 mg q8h prn -Permethrin cream 1 dose Pyuria, present on admission, active -UA shows 6-10 WBC, positive leuk esterase, positive bacteria -No signs or symptoms of UTI however, patient does seem to be having some vestibular symptoms which may be related to infection -We will treat empirically with ceftriaxone -Continue to monitor for final urine culture results Essential hypertension, present on admission, stable -Continue lisinopril 5 mg daily and verapamil 240 mg daily Dyslipidemia, present on admission, stable -Continue home lovastatin 40 mg daily GERD, present on admission, stable -Protonix CODE STATUS: Full code DVT prophylaxis: Heparin subcutaneous Disposition: Patient seems to be improving somewhat however she still complains of dizziness with movement. We will continue with recommendations from physical therapy and reassess the patient tomorrow to see if OMT helped to resolve some of the patient's symptoms. At this time TIA has been ruled out. Some of the patient's dizziness could be secondary to the increased stressors at the patient is currently exposed to. The patient currently is living with her son who seems to be on disability but also seems to be a little difficult. We will continue to monitor the patient for progress. Resuscitation Status: CPR: Attempt Resuscitation Di Granados DO Jan 22, 2017 17:40
--- NOTE | 2017-01-22 17:47 | PCM.PROC ---
Procedure Note Date of Service: Jan 22, 2017 Procedure: Procedure: Osteopathic Manipulative Treatment Subjective: Patient is an 86-year-old female who presents with a complaint of dizziness with motion of her neck. The patient states that the dizziness is worse with motion in any direction. The patient states that this has been going on for the last 2-3 days however it has been progressively worsening and she decided to come into the emergency room for treatment. Risks and benefits of OMT were explained to the patient and verbal consent obtained. Osteopathic Structural Exam: Head: SBS right sidebending rotation, OA ESRRl right OMS suture congestion/ hypertonicity, Cervicals:C2-C4 ESrRr, right SCM hypertonicity Thoracics: outlet rotated L Ribs: Inhaled first rib on the right Upper extremities: Right clavicle resection, right trapezius hypertonicity, right latissimus dorsi hypertonicity Patient responded well to treatment. And stated that her dizziness was not as severe but still present with some motion Osteopathic treatment modalities used: Myofascial release, Muscle Energy, Cranial, BLT, and soft tissue technique Provider and Electrophonic Engineer: Eileen Kaur (medical student) Di Granados DO Jan 22, 2017 17:47
[2017-01-23 00:36] VITALS: BP 119/82; PULSE 75; RESP 20; O2SAT 96
[2017-01-23 04:55] VITALS: BP 132/78; PULSE 80; RESP 20; O2SAT 97
[2017-01-23] MEDS ORDERED: [UNRECOGNIZED DRUG - OTHER] XX ONE (06:00)
--- NOTE | 2017-01-23 06:28 | NUR ---
Shift note uneventful night ORR resolved and itching and redness decreased drastically per patient did express some anxiety at shift start r/t some stml but did get up eventually and ambulated floor w/out incident
[2017-01-23] MEDS: Pantoprazole 40 mg ER24 Tablet PO SCH (06:35)
[2017-01-23 07:20] LABS: Mean Corpuscular Hemoglobin 34.2 pg (27.0-35.0); Mean Corpuscular Volume 100.3 fL (81-100)
[2017-01-23] MEDS: Verapamil SR 240 mg ER12 Tablet PO SCH (08:37)
[2017-01-23] MEDS: Heparin 5,000 Unit/mL Inj SUBQ SCH (08:44)
[2017-01-23] MEDS: cefTRIAXone Inj 2,000 MG in Dextrose 5% Minibag Plus 50 ML IV SCH (09:10)
[2017-01-23 09:26] VITALS: BP 144/76; PULSE 86; RESP 20; O2SAT 92
[2017-01-23 10:25] VITALS: PULSE 113
[2017-01-23] MEDS ORDERED: Meclizine Hcl PO (11:27)
[2017-01-23] MEDS ORDERED: KEN25CR EXT (11:37)
--- NOTE | 2017-01-23 11:37 | PCM.DIMED ---
Discharge Instructions Date of Service Jan 23, 2017 Dates of Hospitalization Jan 21, 2017 at 19:33 Discharge Diagnosis Discharge Diagnosis vertigo Urticaria possibly secondary to scabies vs spider bite Pyuria Hypertension Dyslipidemia GERD Diet Discharge Diet: Heart Healthy Activity Discharge Activity: No restrictions Call your provider Call your provider for: Shortness of breath, Chest pain, Weakness (unilateral) Patient Instructions Follow-up Provider: Angelita Rosa DO Follow-up with PCP in: 2 weeks (please keep your appointment it is scheduled for February 01 please call the office to find out the time) Di Granados DO Jan 23, 2017 11:37
--- NOTE | 2017-01-23 11:39 | PCM.DC.MED ---
Discharge Summary Date of Service Jan 23, 2017 Dates of Hospitalization Date of Hospital Admission Jan 21, 2017 at 19:33 Date of Discharge: Jan 23, 2017 Providers: Admitting Physician: Bruna Mayen DO Primary Care Physician: Issac Attending Physician: Di Granados DO Diagnosis at Time of Discharge Diagnosis at Time of Discharge vertigo Urticaria possibly secondary to scabies vs spider bite Pyuria Hypertension Dyslipidemia GERD Procedures XRay, CTs & MRIs IMPRESSION: BRAIN MRI: 1. No acute intracranial disease process. 2. No areas of acute or chronic infarction. 3. Mild, diffuse volume loss. 4. Mild periventricular and subcortical white matter chronic microvascular ischemic changes. BRAIN MR ANGIOGRAM: Negative examination. NECK MR ANGIOGRAM: 1. Less than 50% stenosis of the origin of the right internal carotid artery. 2. Left internal carotid artery is fully patent. 3. Vertebral arteries are fully patent. The estimate of stenosis included in the report of the imaging study was calculated using the NASCET method Dictated by: Laney Hoyos MD, PhD on 01/22/2017 at 10:30 Approved by: Laney Hoyos MD, PhD on 01/22/2017 at 10:42 Brief History Patient is an 86-year-old female with a medical history significant for hypertension, dyslipidemia, and depression presents with 2 days of dizziness and right forearm/right lower leg itching. The patient presented with the complained of lightheadedness/dizziness with movement of the head.The patient denied unilateral extremity weakness, slurred speech, heart palpitation, chest pain, or syncopal episode. The patient stated that she felt like the room was spinning whenever she moved her head. MRI and CT of the head were negative. The patient is under a lot of stress as she lives with her son who is a big stressor. The patient had a lot of tension in her neck which most likely caused her dizziness from compression of the Vagus nerve at the OMS suture. The patient responded well to OMT and vestibular physical therapy. The patient has been discharge in stable condition with recommended follow up with her PCP for OMT and referral for vestibular physical therapy. The patient's blood pressure and blood sugars remained within normal limits during the patient's stay. Of note the patient also presented with a skin rash that has been present for the last 1.5 weeks. The patient described lesions between her fingers and on legs and was prescribed premetherin cream. After further questioning in to the patient's history this seems more like a bug bite on the RLE. She has not traveled anywhere recently and Lyme disease is very low on the probability list. The patient was prescribed triamcinalone cream and vistril and told to follow up with her PCP in regards to this. 1) Follow up for OMT 2) Vestibular physical therapy referral Hospital Course Pt is an 86-year-old female with a medical history of hypertension, dyslipidemia , and depression presented with acute dizziness, admitted for stroke rule. Acute dizziness, present on admission, active -Likely vestibular disorder, benign paroxysmal positional vertigo, possible vestibular neuritis -Concern for TIA/CVA. ABCD scores for, there is a 4.1 risk for stroke -CT head negative. - MRI negative -Continue meclizine 25 mg TID PRN, -Physical therapy consulted for vestibular evaluation and treatment -OMT -May consider steroids if dizziness is continued Urticaria versus scabies, present on admission, active -Unknown exact cause -Vistaril 25 mg q8h prn -Permethrin cream 1 dose -Triamcinilone cream Pyuria, present on admission, active -UA shows 6-10 WBC, positive leuk esterase, positive bacteria -No signs or symptoms of UTI however, patient does seem to be having some vestibular symptoms which may be related to infection -We will treat empirically with ceftriaxone -Continue to monitor for final urine culture results Essential hypertension, present on admission, stable -Continue lisinopril 5 mg daily and verapamil 240 mg daily Dyslipidemia, present on admission, stable -Continue home lovastatin 40 mg daily GERD, present on admission, stable -Protonix CODE STATUS: Full code DVT prophylaxis: Heparin subcutaneous Disposition: Patient seems to be improving somewhat however she still complains of dizziness with movement. We will continue with recommendations from physical therapy and reassess the patient tomorrow to see if OMT helped to resolve some of the patient's symptoms. At this time TIA has been ruled out. Some of the patient's dizziness could be secondary to the increased stressors at the patient is currently exposed to. The patient currently is living with her son who seems to be on disability but also seems to be a little difficult. We will continue to monitor the patient for progress. Exam Vital Signs (Last) Date Time Temp Pulse Resp B/P Pulse Ox O2 Delivery O2 Flow Rate FiO2 8/17 10:25 113 01/23/17 09:26 37.0 20 144/76 92 Room Air Exam Physical Exam: GEN: Patient was awake, alert, responding appropriately to questions HEENT: Pupils equal round and reactive to light, extraocular eye muscles intact , Neck soft supple, trachea midline, nomocephalic/atraumatic CV: +S1/S2, regular rate and rhythm, no murmurs auscultated Respiratory: CTAB, no wheezes, rales, rhonchi GI: +bowel sounds x4, soft, compressible, nontender to palpation EXT: no clubbing, cyanosis, edema Neuro: Cranial nerves II-XII grossly intact Psych: mood and affect were appropriate Test 01/21/17 17:05 01/21/17 18:35 01/23/17 07:02 Neutrophils (%) (Auto) 53.1% (40-74) Lymphocytes (%) (Auto) 33.3% (14-46) Monocytes (%) (Auto) 10.7% (4-12) Eosinophils (%) (Auto) 2.3% (0-5) Basophils (%) (Auto) 0.4% (0-3) Prothrombin Time 9.8sec (8.1-12.5) Prothromb Time International Ratio 0.92ratio Activated Partial Thromboplast Time 24.0sec (22.8-33.0) Troponin T < 0.010ug/L (0.0-0.011) Hold Asher Top Tube Received (Received) Urine Color Yellow (YELLOW) Urine Appearance Hazy (CLEAR,HAZY) Urine pH 6.0 (5.0-8.0) Urine Specific [place] 1.020 (1.003-1.035) Urine Protein Negativemg/dL (NEG,TRACE) Urine Glucose (UA) Negativemg/dL (NEGATIVE) Urine Ketones Negativemg/dL (NEGATIVE) Urine Occult Blood Negative (NEGATIVE) Urine Nitrite Negative (NEGATIVE) Urine Bilirubin Negative (NEGATIVE) Urine Urobilinogen 1.0mg/dL (NORMAL) Urine Leukocyte Esterase Moderate (NEGATIVE) Urine RBC 0-2/hpf (0-2) Urine WBC 6-10/hpf (0-5) Urine Epithelial Cells Few/hpf (NONE-MOD) Urine Crystals None seen (NONE SEEN) Urine Bacteria Few/hpf (NONE-FEW) Urine Hyaline Casts None/lpf (NONE) Urine Granular Casts None seen (NONE SEEN) Urine Waxy Casts None seen (NONE SEEN) Urine Red Blood Cell Casts None seen (NONE SEEN) Urine White Blood Cell Casts None seen (NONE SEEN) Urine Mucus None seen (None Seen) Urine Trichomonas None seen (NONE SEEN) Urine Yeast None (NONE SEEN) Urinalysis Comment None Urine Culture Reflexed Indicated White Blood Count 3.7th/mm3 (3.8-10.1) Red Blood Count 3.80mil/mm3 (3.90-5.20) Hemoglobin 13.0g/dL (12.0-15.6) Hematocrit 38.1% (35.0-46.0) Mean Corpuscular Volume 100.3fL (81-100) Mean Corpuscular Hemoglobin 34.2pg (27.0-35.0) Mean Corpuscular Hemoglobin Concent 34.1% (32.0-37.0) Red Cell Distribution Width 13.2% (12.3-15.4) Platelet Count 188bil/L (150-400) Sodium Level 142mEq/L (134-144) Potassium Level 4.1mEq/L (3.5-5.2) Chloride Level 107mEq/L (97-108) Carbon Dioxide Level 21mmol/L (18-29) Blood Urea Nitrogen 24mg/dL (8-27) Creatinine 0.70mg/dL (0.57-1.00) Estimat Glomerular Filtration Rate 114mL/min (>59) Glucose Level 102mg/dL (60-99) Lactic Acid Level 1.3mmol/L (0.4-2.0) Calcium Level 9.3mg/dL (8.5-10.1) Total Bilirubin 0.2mg/dL (0.0-1.2) Aspartate Amino Transf (AST/SGOT) 27U/L (0-50) Alanine Aminotransferase (ALT/SGPT) 18U/L (0-32) Alkaline Phosphatase 82U/L (25-165) Total Protein 5.9g/dL (6.4-8.4) Albumin 3.8g/dL (3.4-5.0) Procalcitonin 0.04ng/mL (0.00-0.08) Discharge Medications Discharge Medications Aspirin (Aspirin) 81 Mg Tablet 81 MG PO HS (Reported) Esomeprazole Magnesium (Nexium) 40 Mg Capsule.dr 40 MG PO QAM (Reported) Lisinopril (Lisinopril) 5 Mg Tablet 5 MG PO QAM (Reported) Rosuvastatin Calcium (Crestor) 40 Mg Tablet 40 MG PO HS (Reported) Triamcinolone Acet (Triamcinolone Acetonide Cream) 1 Applic/0.25 Gm Cr 1 APPLIC EXT BID Prescribed by: DI GRANADOS DO Verapamil ER (Verapamil ER) 240 Mg Cap24h.pel 240 MG PO QAM (Reported) As needed ([Meclizine Hcl]) 25 MG TABLET 25 MG PO TID PRN PRN VERTIGO Prescribed by: DI GRANADOS DO Followup Plan Discharge Diet: Heart Healthy Discharge Activity: No restrictions Follow-up Provider: Angelita Rosa DO Follow-up with PCP in: 2 weeks (please keep your appointment it is scheduled for February 01 please call the office to find out the time) Time spent Greater than 35 minutes copies to: Angelita Rosa Precious L DO Jan 23, 2017 11:38
--- NOTE | 2017-01-23 11:48 | NUR ---
Social Work-discharge: Data:EMR reviewed. Pt is on day 2 of hospitalization for dizziness per H&P. Pt is medically stable for discharge. PT has cleared pt for home for outpt PT.Pt lives with her son at home who will provide transport home. No discharge needs identified. All updated and agreeable to plan. Assessment:Pt who is independent at baseline. Plan:Pt to discharge home today via POV. PT has cleared pt for home with outpt PT services. No discharge needs identified. All updated and agreeable to plan. FELICIA Frank
--- NOTE | 2017-01-23 12:14 | NUR ---
DISCHARGE Patient to be discharged, son has been called and will pick her up and drive patient home. Patient denies pain, nausea, and shortness of breath. IV catheter removed intact, personal belongings accounted for, and follow up appointments reviewed with patient. Medications and new Rx gone over with patient, and she verbalizes understanding. Care notes on new Rx provided as well as care notes on dizziness.
== END 2017-01-23 12:30 | disposition home or self-care (01) ==
LOC: SED 16:01 → MPC 19:33
PROVIDERS: ADMIT Internal Medicine; ATTEND Internal Medicine
DX: T63.301A Toxic effect of unspecified spider venom, accidental (unintentional), initial encounter (principal); R42 Dizziness and giddiness; L50.9 Urticaria, unspecified; N39.0 Urinary tract infection, site not specified; I10 Essential (primary) hypertension; E78.5 Hyperlipidemia, unspecified; K21.9 Gastro-esophageal reflux disease without esophagitis; I45.2 Bifascicular block; F32.9 Major depressive disorder, single episode, unspecified; M81.0 Age-related osteoporosis without current pathological fracture; M19.90 Unspecified osteoarthritis, unspecified site; Z88.8 Allergy status to other drugs, medicaments and biological substances; Z79.82 Long term (current) use of aspirin; Z87.891 Personal history of nicotine dependence
CPT/HCPCS: 36415; 70450; 70549; 70553; 80053; 81000; 83605; 84145; 84484; 85025; 85027; 85610; 85730; 87086; 93005; 96361; 96365; 96372; 97162; 99285; A9585; G0378; G0463; G8978; G8979; J0696; J1644; J7030; Q0177